=== PATIENT | male | born 1945 | race Caucasian/White ===

== ENCOUNTER 2017-12-19 14:14 | Emergency (ER) | payer MEDICARE, OTHER ==
--- NOTE | 2017-12-19 16:25 | RAD ---
THREE VIEWS RIGHT SHOULDER: Date: 12-19-17 History: Injury to right shoulder after a fall. 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 There is minimal right glenohumeral arthropathy. No fracture, dislocation, or other osseous abnormality seen involving the r ight shoulder. IMPRESSION: No acute osseous abnormality involving the right shoulder. If there is concern for rotator cuff tear, MRI is suggested for further evaluation. POS: HARESH
== END 2017-12-19 16:03 | disposition home or self-care (01) ==
LOC: MADERS 14:14
DX: S40.011A Contusion of right shoulder, initial encounter (principal); I10 Essential (primary) hypertension; J45.909 Unspecified asthma, uncomplicated; W01.0XXA Fall on same level from slipping, tripping and stumbling without subsequent striking against object, initial encounter